=== PATIENT | female | born 1935 ===

== ENCOUNTER 2019-12-25 23:28 | Observation (INO) | payer MEDICARE, SELFPAY ==
[2019-12-25 23:32] VITALS: BP 167/75; PULSE 76; RESP 16; TEMP 37.3; O2SAT 92; BMI 24.7
--- NOTE | 2019-12-25 23:37 | XR_ITS ---
WS: [id number] CHEST XRAY TECHNIQUE: Portable chest. CLINICAL INFORMATION: Altered mental status COMPARISON: None. FINDINGS: Heart: Normal cardiac silhouette. Aortic calcification. Lungs: Moderate chronic emphysematous changes. No acute pulmonary infiltrates. Bones: Normal visualized bony structures. XR/XR chest 1V portable [id number] IMPRESSION: No acute chest findings
--- NOTE | 2019-12-25 23:38 | ECG_ITS ---
[facility] Test Date: 2019-12-26 Pat Name: Spring Billy Department: Room: Gender: Female Chemical Weigher: : 1935 Requested By: Tayler Shen Order Number: [id number] Thomas MD: kB Singh M.D. Measurements Intervals [place] Rate: 75 P: 72 MI: 193 QRS: 31 QRSD: 86 T: 134 QT: 403 QTc: 450 Interpretive Statements SINUS RHYTHM ST DEVIATION AND MODERATE T-WAVE ABNORMALITY, CONSIDER ANTEROLATERAL ISCHEMIA [-0.1+ mV T WAVE IN V3-V6] No previous ECG available for comparison Electronically Signed On 12-27-2019 0:06:20 CDT by Bk Singh M.D. [email or web address]/store/NU/[id number] f
--- NOTE | 2019-12-25 23:38 | CTR_ITS ---
PROCEDURE INFORMATION: Exam: CT Head Without Contrast Exam date and time: 12/25/2019 11:53 PM Age: 84 years old Clinical indication: Altered mental status/memory loss; Confusion or disorientation TECHNIQUE: Imaging protocol: Computed tomography of the head without contrast. Radiation optimization: All CT scans at this facility use at least one of these dose optimization techniques: automated exposure control; mA and/or kV adjustment per patient size (includes targeted exams where dose is matched to clinical indication); or iterative reconstruction. COMPARISON: No relevant prior studies available. RADIATION DOSE METRICS: Total DLP (mGy-cm): 982.15 FINDINGS: Brain: Subacute infarction changes are observed in the left MCA territory involving the posterior insula, and the left temporal, parietal and occipital lobes. Mild atrophy and mild white matter chronic microvascular changes are noted. No hemorrhage. Ventricles: Normal. No ventriculomegaly. Bones/joints: Unremarkable. No acute fracture. Sinuses: Visualized sinuses are unremarkable. No fluid levels. Mastoid air cells: Visualized mastoid air cells are well aerated. Soft tissues: Unremarkable. CT/CT head wo con* [id number] IMPRESSION: Large left MCA territory subacute infarction. Radiation Dose CTDIVOL = (mGy): DLP = 982.15 (mGy-cm)
--- NOTE | 2019-12-25 23:41 | ED_ITS ---
HPI - Altered Mental Status General: Chief Complaint: Neuro Symptoms/Deficit Stated Complaint: stroke Time Seen by Provider: 12/25/19 23:32 Source: EMS Mode of arrival: EMS Limitations: altered mental status History of Present Illness: HPI narrative: Mrs. Billy is an 84-year-old female who comes in via [facility] with report of stroke. Patient apparently on the seventh of this month developed facial droop, right-sided arm and leg weakness and had slurred speech. Her symptoms have not improved but actually gradually progressed. Family apparently took her finally to see the PCP on the and he diagnosed her with a stroke and informed him to go to the ER but she declined and was taken home. Tonight apparently she declined to the point she was unable to be cared for and family called EMS who brought the patient here. Here the patient is nonverbal and appears to have right-sided deficits. Family is not available, no phone number was left by EMS and there are no old charts for review. History is very limited. Review of Systems General: Reports: ROS unobtainable due to mental status Physical Exam Const: COMMON NORMALS: no acute distress, healthy appearing and well nourished GENERAL APPEARANCE: cooperative, well kempt and well developed HENMT: COMMON NORMALS: normocephalic, atraumatic, external ears normal, EAC's normal and Normal external nose present HEAD & SCALP: normal to inspection, normocephalic and atraumatic FACE & SINUS: normal facial exam and face symmetric NOSE: Normal external nose present and Normal nares present EXTERNAL EAR: Yes external ears normal EXTERNAL AUDITORY CANAL: EAC's normal MOUTH: Normal oral and palatal mucosa present, lip normal and tongue normal Eye: COMMON NORMALS: Equal, round and reactive pupils present and conjunctivae normal GENERAL EYE: appearance normal, both eyes and all related structures ALIGNMENT: Yes alignment normal PERIORBITAL: periorbital findings normal EYELID: eyelids normal CONJUNCTIVA: Yes conjunctivae normal SCLERA: sclerae normal PUPIL: Yes Equal, round and reactive pupils present Neck/C-Spine: COMMON NORMALS: full ROM, no lymphadenopathy, supple, no meningeal signs and no JVD GENERAL: Yes normal visual inspection and Yes trachea midline Chest: COMMONS NORMALS: normal inspection of the chest and normal palpation of entire chest wall Resp: COMMON NORMALS: normal respiratory effort, No retractions and No use of accessory muscles EFFORT & INSPECTION: Yes able to speak in complete sentences and Yes symmetric chest movement AUSCULTATION: no crackles, no rales, no rhonchi and no wheezes Cardio: COMMON NORMALS: no JVD, regular rate, regular rhythm, S1 normal heart sound present and S2 normal heart sound present RATE: regular rate RHYTHM: regular rhythm HEART SOUNDS: S1 normal heart sound present, S2 normal heart sound present, no click, no gallops, no murmurs, no rubs and abnormal split S2 GI: COMMON NORMALS: Soft to palpation and No hepatosplenomegaly present PALPATION: Yes Soft to palpation, No Tenderness to palpation present (GI), No Guarding due to palpation present (GI), No Rigid due to palpation, Yes No hepat osplenomegaly present, No Hernia present, No Palpable mass present and No Pulsatile mass present : COMMON NORMALS: Yes no CVA tenderness BLADDER/KIDNEY EXAM: Yes no CVA tenderness EXTERNAL FEMALE EXAM: No Hernia present Back/Pelvis: COMMON NORMALS: no CVA tenderness, thoracic and lumbar spine normal to inspection, no thoracic nor lumbar tenderness and thoraco-lumbar ROM normal Extremity: COMMON NORMALS: normal to inspection, full ROM, capillary refill normal, no joint enlargement, no clubbing, cyanosis or edema and no calf tenderness Neuro: JEEVAN COMA SCALE: document GCS findings [place] coma scale eye opening: Spontaneous [place] coma scale verbal response: None [place] coma scale motor response: Localising Jeevan coma scale total score: 10 MENINGEAL SIGNS: Yes no meningeal signs Psych: APPEARANCE: Yes well kempt Skin: COMMON NORMALS: no rashes or lesions noted, turgor normal, no jaundice, no petechiae and no mottling GENERAL SKIN EXAM: no rashes or lesions noted and turgor normal Course Vital Signs: Vital signs: Vital Signs Temperature 99.2 F 12/25/19 23:32 Pulse Rate 74 12/26/19 03:18 Respiratory Rate 16 12/26/19 03:18 Blood Pressure 161/69 12/26/19 03:18 Pulse Oximetry 92 12/26/19 03:18 MDM - Altered Mental Status MDM Narrative: Medical decision making narrative: The case at this time is very limited but the patient does appear to have had a very large stroke. I have endorsed the case to Dr. Del Castillo who is agreeable to admission. Lab Data: Attestation: I reviewed the patient's lab results. Labs: Lab Results 12/25/19 12/25/19 12/25/19 Range/Units 01:48 23:55 23:55 WBC 9.9 (4.0-10.0) 10^3/ uL RBC 4.59 (4.1-5.3) 10^6/u L Hgb 14.5 (11.5-15.3) g/dL Hct 43.2 (37.0-47.0) % MCV 94.1 (81-99) fL MCH 31.6 (28.0-34.0) pg MCHC 33.6 (30.0-36.0) g/dL RDW 11.7 L (12.1-15.1) % Plt Count 349 (130-400) 10^3/c mm MPV 10.7 H (7.4-10.4) fL Neut % (Auto) 72.1 % Lymph % (Auto) 17.4 % [place] % (Auto) 9.5 % Eos % (Auto) 0.6 % Baso % (Auto) 0.2 % Neut # (Auto) 7.10 (1.8-7.7) 10^3/u L Lymph # (Auto) 1.7 (0.8-4.8) 10^3/u L [place] # (Auto) 0.9 (0.2-0.9) 10^3/u L Eos # (Auto) 0.1 (0.0-0.8) 10^3/u L Baso # (Auto) 0.0 (0.0-0.1) 10^3/u L Nucleated RBC % (a uto) 0 % Nucleated RBCs # 0.0 /100WBC PT 13.80 H (10.5-13.3) SECO NDS INR 1.03 (0.8-1.2) Specimen Type Arterial Sample Site Brachial, right ABG pH 7.46 H (7.35-7.45) ABG pCO2 35.0 (35-45) mmHg ABG pO2 61.4 L (80.0-100.0) mmH g ABG HCO3 25.1 (22-26) mmol/L ABG Base Excess 1.7 (-2.0-2.0) mmol/ L Nick Test N/a Hematocrit 46.3 (37-47) % O2 Delivery Device Room air Milling Machine Operator ID [email or web address] Sodium (136-145) mmol/L Potassium (3.5-5.1) mmol/L Chloride (98-107) mmol/L Carbon Dioxide (22-29) mmol/L Anion Gap (5-19) BUN (8-23) mg/dL Creatinine (0.5-0.9) mg/dL Glucose (65-115) mg/dL Calculated Osmolal ity (285-295) mOsm/k g Lactic Acid (0.5-2.2) mmol/L Calcium (8.5-10.5) mg/dL Magnesium (1.7-2.3) mg/dL Total Bilirubin (0.15-1.2) mg/dL AST (0-32) U/L ALT (0-33) U/L Alkaline Phosphata se (35-105) IU/L Ammonia (11-51) umol/L Creatine Kinase (26-192) U/L Troponin T Baselin e (0-10) ng/L Troponin T 120 Min ambler (0-10) ng/L Delta Troponin T (0-10) ABS# Total Protein (6.6-8.7) g/dL Albumin (3.5-5.2) g/dL Globulin (1.3-4.6) g/dL Free T4 (0.82-1.77) ng/d L Ethyl Alcohol (0-10) mg/dL 12/25/19 12/25/19 12/25/19 Range/Units 23:55 23:55 23:55 WBC (4.0-10.0) 10^3/ uL RBC (4.1-5.3) 10^6/u L Hgb (11.5-15.3) g/dL Hct (37.0-47.0) % MCV (81-99) fL MCH (28.0-34.0) pg MCHC (30.0-36.0) g/dL RDW (12.1-15.1) % Plt Count (130-400) 10^3/c mm MPV (7.4-10.4) fL Neut % (Auto) % Lymph % (Auto) % [place] % (Auto) % Eos % (Auto) % Baso % (Auto) % Neut # (Auto) (1.8-7.7) 10^3/u L Lymph # (Auto) (0.8-4.8) 10^3/u L [place] # (Auto) (0.2-0.9) 10^3/u L Eos # (Auto) (0.0-0.8) 10^3/u L Baso # (Auto) (0.0-0.1) 10^3/u L Nucleated RBC % (a uto) % Nucleated RBCs # /100WBC PT (10.5-13.3) SECO NDS INR (0.8-1.2) Specimen Type Sample Site ABG pH (7.35-7.45) ABG pCO2 (35-45) mmHg ABG pO2 (80.0-100.0) mmH g ABG HCO3 (22-26) mmol/L ABG Base Excess (-2.0-2.0) mmol/ L Nick Test Hematocrit (37-47) % O2 Delivery Device Milling Machine Operator ID Sodium 138 (136-145) mmol/L Potassium 3.2 L (3.5-5.1) mmol/L Chloride 100 (98-107) mmol/L Carbon Dioxide 25 (22-29) mmol/L Anion Gap 16.2 (5-19) BUN 15 (8-23) mg/dL Creatinine 0.8 (0.5-0.9) mg/dL Glucose 153 H (65-115) mg/dL Calculated Osmolal ity 285 (285-295) mOsm/k g Lactic Acid 1.0 (0.5-2.2) mmol/L Calcium 9.8 (8.5-10.5) mg/dL Magnesium 1.9 (1.7-2.3) mg/dL Total Bilirubin 0.5 (0.15-1.2) mg/dL AST 25 (0-32) U/L ALT 19 (0-33) U/L Alkaline Phosphata se 79 (35-105) IU/L Ammonia 22 (11-51) umol/L Creatine Kinase 102 (26-192) U/L Troponin T Baselin e (0-10) ng/L Troponin T 120 Min ambler (0-10) ng/L Delta Troponin T (0-10) ABS# Total Protein 7.3 (6.6-8.7) g/dL Albumin 4.7 (3.5-5.2) g/dL Globulin 2.6 (1.3-4.6) g/dL Free T4 1.60 (0.82-1.77) ng/d L Ethyl Alcohol < 10 (0-10) mg/dL 12/25/19 12/26/19 12/26/19 Range/Units 23:55 01:18 01:18 WBC (4.0-10.0) 10^3/ uL RBC (4.1-5.3) 10^6/u L Hgb (11.5-15.3) g/dL Hct (37.0-47.0) % MCV (81-99) fL MCH (28.0-34.0) pg MCHC (30.0-36.0) g/dL RDW (12.1-15.1) % Plt Count (130-400) 10^3/c mm MPV (7.4-10.4) fL Neut % (Auto) % Lymph % (Auto) % [place] % (Auto) % Eos % (Auto) % Baso % (Auto) % Neut # (Auto) (1.8-7.7) 10^3/u L Lymph # (Auto) (0.8-4.8) 10^3/u L [place] # (Auto) (0.2-0.9) 10^3/u L Eos # (Auto) (0.0-0.8) 10^3/u L Baso # (Auto) (0.0-0.1) 10^3/u L Nucleated RBC % (a uto) % Nucleated RBCs # /100WBC PT (10.5-13.3) SECO NDS INR (0.8-1.2) Specimen Type Sample Site ABG pH (7.35-7.45) ABG pCO2 (35-45) mmHg ABG pO2 (80.0-100.0) mmH g ABG HCO3 (22-26) mmol/L ABG Base Excess (-2.0-2.0) mmol/ L Nick Test Hematocrit (37-47) % O2 Delivery Device Milling Machine Operator ID Sodium (136-145) mmol/L Potassium (3.5-5.1) mmol/L Chloride (98-107) mmol/L Carbon Dioxide (22-29) mmol/L Anion Gap (5-19) BUN (8-23) mg/dL Creatinine (0.5-0.9) mg/dL Glucose (65-115) mg/dL Calculated Osmolal ity (285-295) mOsm/k g Lactic Acid (0.5-2.2) mmol/L Calcium (8.5-10.5) mg/dL Magnesium 1.9 (1.7-2.3) mg/dL Total Bilirubin (0.15-1.2) mg/dL AST (0-32) U/L ALT (0-33) U/L Alkaline Phosphata se (35-105) IU/L Ammonia (11-51) umol/L Creatine Kinase (26-192) U/L Troponin T Baselin e 14 H (0-10) ng/L Troponin T 120 Min ambler 14.70 H (0-10) ng/L Delta Troponin T 0.70 (0-10) ABS# Total Protein (6.6-8.7) g/dL Albumin (3.5-5.2) g/dL Globulin (1.3-4.6) g/dL Free T4 (0.82-1.77) ng/d L Ethyl Alcohol (0-10) mg/dL Imaging Data^: CT Head: Radiologist's impression: [place] [address] CT Scan Report Signed Patient: Spring Billy Unit #: [id number] : 1935 Age/Sex: 84 / F ADM Date: 12/25/19 Loc: ER Room/Bed: Attending Dr: Ordering Provider/Ordering MD: Tayler Fox DO Date of Service: 12/25/19 Procedure(s): CT head wo con* [id number] Accession Number(s): [id number] Report Number: [id number] PROCEDURE INFORMATION: Exam: CT Head Without Contrast Exam date and time: 12/25/2019 11:53 PM Age: 84 years old Clinical indication: Altered mental status/memory loss; Confusion or disorientation TECHNIQUE: Imaging protocol: Computed tomography of the head without contrast. Radiation optimization: All CT scans at this facility use at least one of these dose optimization techniques: automated exposure control; mA and/or kV adjustment per patient size (includes targeted exams where dose is matched to clinical indication); or iterative reconstruction. COMPARISON: No relevant prior studies available. RADIATION DOSE METRICS: Total DLP (mGy-cm): 982.15 FINDINGS: Brain: Subacute infarction changes are observed in the left MCA territory involving the posterior insula, and the left temporal, parietal and occipital lobes. Mild atrophy and mild white matter chronic microvascular changes are noted. No hemorrhage. Ventricles: Normal. No ventriculomegaly. Bones/joints: Unremarkable. No acute fracture. Sinuses: Visualized sinuses are unremarkable. No fluid levels. Mastoid air cells: Visualized mastoid air cells are well aerated. Soft tissues: Unremarkable. CT/CT head wo con* [id number] IMPRESSION: Large left MCA territory subacute infarction. Radiation Dose CTDIVOL = (mGy): DLP = 982.15 (mGy-cm) Dictated By: Aaron Villavicencio MD Signed By: Aaron Villavicencio MD Signed Date/Time: 12/26/19216 DD/ 5 CXR: My impression: No acute cardiopulmonary findings. Discharge Plan Discharge Patient Disposition: Admitted As Inpatient Admit Provider: Jordan Cai Clinical Impression: Cerebrovascular accident Condition: Stable Coding Level of Care Code ED Ethylbenzene Converter Operator for Epifanio Monk
[2019-12-25 23:56] VITALS: BP 145/76; PULSE 76; RESP 16; O2SAT 94
[2019-12-26] VITALS (12 sets, daily range): BP systolic 126–184; BP diastolic 64–88; PULSE 71–102; RESP 15–22; TEMP 36.7–37.4; O2SAT 92–99
[2019-12-26 00:04] LABS: Basophils % 0.2 %; Eosinophils # 0.1 10^3/uL (0.0-0.8); Eosinophils % 0.6 %; Hematocrit 43.2 % (37.0-47.0); Hemoglobin 14.5 g/dL (11.5-15.3); Lymphocytes # 1.7 10^3/uL (0.8-4.8); Lymphocytes % 17.4 %; Mean Corpuscular HGB Conc 33.6 g/dL (30.0-36.0); Mean Corpuscular Hemoglobin 31.6 pg (28.0-34.0); Mean Corpuscular Volume 94.1 fL (81-99); Mean Platelet Volume 10.7 fL (7.4-10.4); Monocytes # 0.9 10^3/uL (0.2-0.9); Monocytes % 9.5 %; Neutrophils % 72.1 %; Nucleated Red Blood Cells % 0 %; Platelet Count 349 10^3/cmm (130-400); Red Blood Count 4.59 10^6/uL (4.1-5.3); Red Cell Distribution Width 11.7 % (12.1-15.1); White Blood Count 9.9 10^3/uL (4.0-10.0)
[2019-12-26 00:17] LABS: INR 1.03 (0.8-1.2)
[2019-12-26 00:23] LABS: Ammonia 22 umol/L (11-51); Troponin(5th) Baseline 14 ng/L (0-10)
[2019-12-26 00:32] LABS: Alanine Aminotransferase 19 U/L (0-33); Albumin Level 4.7 g/dL (3.5-5.2); Alkaline Phosphatase 79 IU/L (35-105); Anion Gap 16.2 (5-19); Aspartate Amino Transferase 25 U/L (0-32); Blood Urea Nitrogen 15 mg/dL (8-23); Calcium 9.8 mg/dL (8.5-10.5); Carbon Dioxide 25 mmol/L (22-29); Chloride 100 mmol/L (98-107); Creatine Phosphokinase 102 U/L (26-192); Creatinine Clr Calc Pharmacy 47.8117; Globulin 2.6 g/dL (1.3-4.6); Glucose 153 mg/dL (65-115); Magnesium 1.9 mg/dL (1.7-2.3); Osmolality Calculated 285 mOsm/kg (285-295); Potassium 3.2 mmol/L (3.5-5.1); Sodium 138 mmol/L (136-145); Total Bilirubin 0.5 mg/dL (0.15-1.2); Total Protein 7.3 g/dL (6.6-8.7)
[2019-12-26 00:34] LABS: Alcohol Level < 10 mg/dL (0-10)
--- NOTE | 2019-12-26 00:52 | PC.NURSE ---
attempted pandey catheter placement for patient per dr iraheta orders, unable to achieve catheter placement.
--- NOTE | 2019-12-26 01:38 | ECG_ITS ---
[facility] Test Date: 2019-12-26 Pat Name: Spring Billy Department: Room: Gender: Female Pot Filler: : 1935 Requested By: Tayler Shen Order Number: [id number] Thomas MD: Bk Singh M.D. Measurements Intervals [place] Rate: 75 P: 72 ND: 193 QRS: 31 QRSD: 86 T: 134 QT: 403 QTc: 450 Interpretive Statements SINUS RHYTHM ST DEVIATION AND MODERATE T-WAVE ABNORMALITY, CONSIDER ANTEROLATERAL ISCHEMIA [-0.1+ mV T WAVE IN V3-V6] No previous ECG available for comparison Electronically Signed On 12-27-2019 1:33:11 CDT by Bk Singh M.D. [id number] f
[2019-12-26 01:59] LABS: ABG PH Result 7.46 (7.35-7.45); Arterial Blood Gas Hematocrit 46.3 % (37-47); Base Excess ABG 1.7 mmol/L (-2.0-2.0); Blood Gas Sample Site Brachial, right; Blood Gas Sample Type Arterial; HCO3 ABG 25.1 mmol/L (22-26); Oxygen Device ROOM AIR; PO2 ABG 61.4 mmHg (80.0-100.0)
[2019-12-26] MEDS: lidocaine 1% INJ 20 mL 5 ML IV ×2 (03:17→13:23)
[2019-12-26] MEDS: sodium chloride 0.9% 1,000 ML 150 ML IV (03:17)
[2019-12-26 03:21] LABS: Magnesium 1.9 mg/dL (1.7-2.3)
[2019-12-26 03:52] LABS: Amphetamines Screen Urine Negative (Negative); Barbiturates Screen Urine Negative (Negative); Benzodiazepines Screen Urine Negative (Negative); Cocaine Screen Urine Negative (Negative); Opiate Screen Urine Negative (Negative); PCP Screen Urine Negative (Negative); THC Screen Urine Negative (Negative)
[2019-12-26 03:57] LABS: Bilirubin Urine Neg (NEGATIVE); Blood Urine 3+ (Negative); Glucose Urine UA Norm (Normal); Ketones Urine 1+ (Negative); Leukocyte Esterase Urine 2+ (Negative); Nitrate Urine Negative (Negative); Protein Urine 3+ (Negative); RBC Urine >100 /hpf (0-2); Urine Appearance Cloudy (CLEAR); Urine Color Yellow (Yellow); Urobilinogen Urine 1 mg/dL (Negative); pH Urine 5 (5-7)
[2019-12-26 03:58] LABS: Add Urine Culture? Yes; Amorphous Sediment Urine 1+; Bacteria Urine 1+; Squamous Epithelial Cell Urine 0-4 (0-5)
--- NOTE | 2019-12-26 04:04 | PM.HP ---
Providers/Chief Complaint Admitting Physician: Jordan Cai Chief Complaint: stroke History of Present Illness Spring Billy is a 84 year old female brought in by EMS, with reported history of elopement facial droop, right side arm and leg weakness, as well as slurred speech on 12/16, with report of progression of symptoms, reportedly was seen by PCP on 12/22 at which point was diagnosed with CVA. Tonight with noted worsening of symptoms whereby the family could not take care of her, and so EMS was called. Unfortunately during my examination she is completely a phasic, not following any commands. With right side weakness, right side facial droop. I do not have any additional flexion beyond what is reported in emergency documentation. Attempted to reach daughter on phone #[phone], Jing Conti, however, there is no answer. CT of the head in ER with large left MCA territory subacute infarction. Review of Systems General: Reports: ROS unobtainable due to medical condition and ROS unobtainable due to mental status Skin/Breast: Denies: rash Medications/Allergies Allergies Allergy/AdvReac Type Severity Reaction Status Date / Time No Known Allergies Allergy Verified 12/26/19 02:48 PFSH Acute Supplemental PFSH Information: Unknown past medical history at this time. Patient able to provide. Appears she has blood pressure medications, GERD medication, depression medication in external medication history. Unknown surgical history. Patient unable to provide. No family available. Unknown family history. Patient unable to provide. Unknown social history, as patient is unable to provide. Vitals/I&O/Wt Last Vital Signs Temp 99.2 F 12/25/19 23:32 Pulse 74 12/26/19 03:18 Resp 16 12/26/19 03:18 BP 161/69 12/26/19 03:18 Pulse Ox 92 12/26/19 03:18 Weight last 48 hrs Weight 63.503 kg Physical Exam Const: COMMON NORMALS: no acute distress; negative for patient oriented x3 GENERAL APPEARANCE: frail appearing; not cooperative ORIENTATION/CONSCIOUSNESS: Yes awake and Yes confused; not oriented to person HENMT: COMMON NORMALS: oropharynx normal Neck/C-Spine: COMMON NORMALS: no JVD Resp: COMMON NORMALS: normal respiratory effort and clear to auscultation bilaterally AUSCULTATION: clear to auscultation bilaterally Cardio: COMMON NORMALS: no JVD, regular rhythm, S1 normal heart sound present, S2 normal heart sound present and No murmurs present (Cardio) RHYTHM: regular rhythm HEART SOUNDS: S1 normal heart sound present and S2 normal heart sound present GI: COMMON NORMALS: Normal to inspection, nondistended, normoactive bowel sounds present, Soft to palpation and non-tender PALPATION: Yes Soft to palpation Extremity: COMMON NORMALS: no joint enlargement and no pedal edema Neuro: TIM COMA SCALE: other (Right-sided facial droop.) SENSORIUM/ORIENTATION: Yes alert and Yes other (Not following commands or answering questions. Not participating with exam.) MOTOR EXAM: Other motor observations present (Right side upper and lower weakness. Appears to be moving left side spontaneously.) Skin: COMMON NORMALS: no rashes or lesions noted GENERAL SKIN EXAM: no rashes or lesions noted Data : 12/25/19 23:55 12/25/19 23:55 A&P Assessment and plan (1) Cerebrovascular accident: The details at this time unfortunately are unknown. Patient is unable to provide any of her own history. Could not contact her daughter Jing Conti on number listed in H&P. History provider gives symptoms initially starting on 12/16, with right side facial droop, right-sided weakness, on 12/22 diagnosed by PCP with CVA. Symptoms reportedly have been progressing, and today family felt he could not take care of her, so EMS was called. With right side paralysis, right side facial droop. She is alert, but does not answer questions or follow commands. Large left MCA territory subacute stroke on CT of the head. She is not a candidate for any intervention at this time in terms of TPA or stent retriever. This time is admitted for additional assessment and management. Started on aspirin [facility]. At this time not clear that she would be able to swallow. ST evaluation. Once oral intake is resumed, consider adding statin. Monitor blood pressures. Monitor on telemetry. Assess TTE. A1c. PT and OT evaluation. Neurology evaluation after DC. Given family did not feel could take care of her, with extent of the stroke she likely will require placement to correction facility. Status: Acute Qualifiers: CVA mechanism: unspecified Qualified Code(s): I63.9 - Cerebral infarction, unspecified Additional A&P Information Mild hypokalemia: Replace. No other past medical history, but appears to have medications and external medical history for hypertension, GERD, depression/anxiety. Attestations Medical Necessity Statement*: Admission of over 2 midnights is continued for assessment management of CVA. Coding Level of Care Code Acute Grinder Set Up Operator Thread Tool for Epifanio Monk Diagnoses Cerebrovascular accident I63.9 CVA mechanism: unspecified
--- NOTE | 2019-12-26 04:41 | USCV_ITS ---
Spring Billy Age: 84 Gender: F : 1935 Exam Date: 12/26/2019 05:07 Ordering Phys: Jordan Cai MD Technologist: Amalia Higgins [place] [facility] [place]: [place] BP: / HR: 74 Rhythm: Sinus Technical Quality: Adequate MEASUREMENTS (Male / Female) Normal Values 2D ECHO LV Diastolic Diameter PLAX 3.2 cm 4.2 - 5.9 / 3.9 - 5.3 cm LV Systolic Diameter PLAX 2.6 cm LV Chamber Size 3.1 cm IVS Diastolic Thickness 0.9 cm 0.6 - 1.0 / 0.6 - 0.9 cm IVS Systolic Thickness 1.4 cm LVPW Diastolic Thickness 0.9 cm 0.6 - 1.0 / 0.6 - 0.9 cm LVPW Systolic Thickness 1.2 cm RV Chamber Size 2.0 cm LVOT Diameter 2.0 cm LV Ejection Fraction 2D Teich 41.2 % LV Ejection Fraction MOD 2C 32.2 % LV Ejection Fraction 2C AL 30.8 % LA Diameter 4.1 cm LA Width 2.1 cm LA Height 3.5 cm RA Width 2.1 cm RA Height 2.7 cm Aorta at Sinotubular Diameter 2.4 cm M-MODE LV Diastolic Diameter MM 3.4 cm 4.2 - 5.9 / 3.9 - 5.3 cm LV Systolic Diameter MM 2.3 cm LV Ejection Fraction MM Teich 59.7 % IVS Diastolic Thickness MM 1.1 cm 0.6 - 1.0 / 0.6 - 0.9 cm IVS Systolic Thickness MM 1.6 cm LVPW Diastolic Thickness MM 1.0 cm 0.6 - 1.0 / 0.6 - 0.9 cm LVPW Systolic Thickness MM 1.6 cm RV Diastolic Diameter MM 1.7 cm Aortic Annulus Diameter 3.2 cm LA Ao Ratio MM 1.3 MV E Point Septal Separation 0.4 cm DOPPLER AV Peak Velocity 152.0 cm/s LVOT Peak Velocity 96.0 cm/s AV Area Cont Eq vti 2.2 cm squared AV Area Cont Eq pk 2.0 cm squared MV Area PHT 3.1 cm squared Mitral E to A Ratio 0.8 MV E' Velocity 7.0 cm/s Mitral E to MV E' Ratio 10.8 Mitral E to LV E' Lateral Ratio 10.2 Mitral E to LV E' Septal Ratio 11.5 TR Peak Velocity 280.7 cm/s TR Peak Gradient 31.5 mmHg TR Mean Velocity 213.2 cm/s TR Mean Gradient 19.8 mmHg TR Velocity Time Integral 87.0 cm TV Peak E Velocity 73.0 cm/s Right Atrial Pressure 3.0 mmHg Pulmonary Artery Systolic Pressu 34.5 mmHg PV Peak Velocity 106.0 cm/s RV Acceleration Time 0.1 s RV Ejection Time 0.3 s RV AcT/ET 0.5 FINDINGS Left Ventricle Normal left ventricular size and systolic function, EF55%. Grade I/IV diastolic dysfunction (abnormal relaxation filling pattern), normal to mildly elevated filling pressures. Right Ventricle The right ventricle is normal in size and function. Right Atrium The right atrium is normal in size. Left Atrium Mildly increased left atrial size. 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 Aortic Valve Thickened aortic valve. Tricuspid Valve No gross abnormalities noted Pulmonic Valve Pulmonic valve not well visualized. Pericardium Normal pericardium without effusion. Aorta Normal ascending aorta dimension. CONCLUSIONS Normal left ventricular size and systolic function, EF55%. Grade I/IV diastolic dysfunction (abnormal relaxation filling pattern), normal to mildly elevated filling pressures. Mildly increased left atrial size. 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 Thickened mitral valve. Thickened aortic valve. There is no pericardial effusion. There are no intracardiac masses. There are no prior echocardiogram studies to compare. Dr Bk Singh MD FAC (Electronically Signed) Final Date: 26 December 2019 20:00 S
[2019-12-26] MEDS: aspirin 300 mg Supp PR (05:38)
[2019-12-26 07:03] LABS: Estmated Average Glucose 137; Hemoglobin A1C 6.4 % (4.0-6.0)
--- NOTE | 2019-12-26 07:30 | PC.NURSE ---
Patient laying in bed, close to nurse's station, patient visible from hallway and door is open. Patient is cooperative.
--- NOTE | 2019-12-26 12:16 | P.PN_ITS ---
Subjective Subjective: Interval history: Chart reviewed, hemodynamically stable, afebrile, on RA, remains aphasic with significant right-sided hemiparesis. Present for evaluation with physical therapy and that she requires significant assistance and attempt to ambulate with walker essentially needing to have her right side consistently supported. Daughter Jing updated at bedside during visiting hours. Family agreeable to SNF placement and prefers [facility]. Evaluated by speech therapy and will start on dysphagia pur?ed diet with honey thick liquids, will require consistent assistance with all meals. Medications: Reviewed: Yes Medication Review Details: Active Medications Generic Name Dose Route Start Last Admin Trade Name Freq PRN Reason Stop Dose Admin Aspirin 300 mg 12/26/19 04:45 12/26/19 05:38 Aspirin MN 300 mg DAILY EMILY Administration Sodium Chloride 1,000 mls @ 150 m ls/hr 12/26/19 03:15 12/26/19 04:36 Sodium Chloride 0.9% IV Not Given .Q6H40M EMILY Sodium Chloride 1,000 mls @ 100 m ls/hr 12/26/19 04:35 12/26/19 04:36 Sodium Chloride 0.9% IV Not Given .Q10H EMILY Ondansetron HCl 4 mg 12/26/19 04:35 Zofran IVP Q6H PRN NAUSEA AND VOMITI NG No Known Allergies Allergy (Verified 12/26/19 02:48) Vitals/I&O/Wt Last Vital Signs Temp 98.3 F 12/26/19 11:19 Pulse 78 12/26/19 11:19 Resp 22 H 12/26/19 11:19 BP 138/64 12/26/19 11:19 Pulse Ox 92 12/26/19 11:19 Weight last 48 hrs Weight 63.503 kg Physical Exam Const: COMMON NORMALS: no acute distress and alert GENERAL APPEARANCE: cooperative, comfortable and frail appearing ORIENTATION/CONSCIOUSNESS: Yes awake OTHER: -unable to gauge orientation due to aphasia HENMT: COMMON NORMALS: normocephalic, atraumatic, hearing grossly normal bilaterally and moist oral mucous membranes HEAD & SCALP: normocephalic and atraumatic Eye: COMMON NORMALS: Equal, round and reactive pupils present, EOMs intact bilaterally and conjunctivae normal CONJUNCTIVA: Yes conjunctivae normal PUPIL: Yes Equal, round and reactive pupils present Neck/C-Spine: COMMON NORMALS: full ROM GENERAL: Yes normal visual inspection and Yes trachea midline Resp: COMMON NORMALS: normal respiratory effort, No retractions, No use of accessory muscles and clear to auscultation bilaterally EFFORT & INSPECTION: Yes able to speak in complete sentences, Yes symmetric chest movement and No tachypneic AUSCULTATION: clear to auscultation bilaterally OTHER: -on RA Cardio: COMMON NORMALS: regular rate, regular rhythm, S1 normal heart sound present, S2 normal heart sound present and No murmurs present (Cardio) RATE: regular rate RHYTHM: regular rhythm HEART SOUNDS: S1 normal heart sound present and S2 normal heart sound present GI: COMMON NORMALS: Normal to inspection, nondistended, normoactive bowel sounds present, Soft to palpation and non-tender PALPATION: Yes Soft to palpation Extremity: COMMON NORMALS: normal to inspection, full ROM and no clubbing, cyanosis or edema; negative for no pedal edema Neuro: SENSORIUM/ORIENTATION: Yes alert SPEECH: Total aphasia GAIT: Yes Staggering gait present (leans heavily to the R) OTHER: -seems to have some degree of R sided carly-neglect Psych: COMMON NORMALS: cooperative OTHER: -limited evaluation due to aphasia Skin: COMMON NORMALS: no rashes or lesions noted, no jaundice, no petechiae and no mottling GENERAL SKIN EXAM: no rashes or lesions noted Data : 12/25/19 23:55 12/25/19 23:55 A&P Assessment and plan (1) Cerebrovascular accident: -noted aphasia, R facial droop, R-sided carly-paresis. -limited hx -large L MCA subacute infarction; per report, initially diagnosed with CVA by PCP -not a candidate for tPA or intervention given time of presentation -NPO pending swallow evaluation; on IVF -ASA [place] -PT/OT evaluations -fall, aspiration precautions -A1c, lipid panel, TSH noted -troponins with no significant delta change -telemetry monitoring -VSS; continue to monitor -UDS and EtOH negative -CXR unremarkable Status: Acute Qualifiers: CVA mechanism: unspecified Qualified Code(s): I63.9 - Cerebral infarction, unspecified Additional A&P Information -Advanced age -Hypokalemia: replace K as needed -HTN: per review of external med rec, was on Amlodipine, Lisinopril-HCTZ, metoprolol -GERD; was on omeprazole -Anxiety/depression; was on Paxil -GI ppx with PPI -DVT ppx with Lovenox -Dispo: needs SNF placement given extent of deficits and need for intensive therapy; family prefers [facility] -Code status: FULL code Attestations Medical Necessity Statement*: Patient requires hospitalization for continued post-CVA management including therapy evaluations. Time Spent in Patient Care: Greater than 35 minutes (>than 50% of time spent in counselling and/or direct pt care on unit) . Coding Level of Care Code Acute Air Brake Mechanic for [facility] Fwd Exam Comprehensive Diagnoses Cerebrovascular accident I63.9 CVA mechanism: unspecified
[2019-12-26] MEDS: pantoprazole 40 mg SDV IVP (13:23)
[2019-12-26] MEDS: potassium chloride premix 40 MEQ/100 ML PREMIX 25 MEQ IV (13:23)
[2019-12-26] MEDS: enoxaparin 40 mg/0.4 mL Syringe SUBCUT (13:24)
[2019-12-26] MEDS: sodium chloride 0.9% 1,000 ML 100 ML IV (14:44)
--- NOTE | 2019-12-26 17:41 | PC.NURSE ---
patient weighs 126lbs and 4oz via bed weight measurement.
[2019-12-27] VITALS (8 sets, daily range): BP systolic 117–192; BP diastolic 76–94; PULSE 90–108; RESP 16–18; TEMP 36.3–37.8; O2SAT 93–95
[2019-12-27 05:21] LABS: Basophils % 0.2 %; Eosinophils # 0.1 10^3/uL (0.0-0.8); Eosinophils % 0.6 %; Hematocrit 42.3 % (37.0-47.0); Hemoglobin 13.9 g/dL (11.5-15.3); Lymphocytes # 1.7 10^3/uL (0.8-4.8); Lymphocytes % 16.6 %; Mean Corpuscular HGB Conc 32.9 g/dL (30.0-36.0); Mean Corpuscular Hemoglobin 31.7 pg (28.0-34.0); Mean Corpuscular Volume 96.6 fL (81-99); Mean Platelet Volume 11.5 fL (7.4-10.4); Monocytes # 0.9 10^3/uL (0.2-0.9); Neutrophils # 7.28 10^3/uL (1.8-7.7); Neutrophils % 73.2 %; Nucleated Red Blood Cells % 0 %; Platelet Count 301 10^3/cmm (130-400); Red Blood Count 4.38 10^6/uL (4.1-5.3); Red Cell Distribution Width 11.9 % (12.1-15.1)
[2019-12-27 05:56] LABS: Alanine Aminotransferase 18 U/L (0-33); Albumin Level 4.2 g/dL (3.5-5.2); Alkaline Phosphatase 76 IU/L (35-105); Anion Gap 15.3 (5-19); Aspartate Amino Transferase 26 U/L (0-32); Blood Urea Nitrogen 11 mg/dL (8-23); Calcium 9.3 mg/dL (8.5-10.5); Carbon Dioxide 22 mmol/L (22-29); Chloride 107 mmol/L (98-107); Globulin 3.3 g/dL (1.3-4.6); Glucose 137 mg/dL (65-115); Osmolality Calculated 290 mOsm/kg (285-295); Potassium 3.3 mmol/L (3.5-5.1); Sodium 141 mmol/L (136-145); Total Bilirubin 0.6 mg/dL (0.15-1.2); Total Protein 7.5 g/dL (6.6-8.7)
[2019-12-27] MEDS: pantoprazole 40 mg SDV IVP (08:42)
[2019-12-27] MEDS: aspirin 300 mg Supp PR (08:59)
--- NOTE | 2019-12-27 10:08 | PC.CHAP ---
Pastoral Care Encounter/Spiritual Assessment Type of Contact [] Declined batter scaler visit [] Patient/Family/Request visit [] Outpatient visit [] Follow-up visit [] Physician referral [] Code/Alert [x] Routine visit [] Staff referral [] Actively dying [x] Patient sleeping [] Family support [] [] Out of room [] Palliative care [] [] Receiving care in room [] Pre-surgical visit [] Trauma [] Long length of stay [] ICU visit [] Other: Relational/Emotional Strength [] Patient feels connected with others/family/visitors/staff [] Distress [] Loneliness/isolation [] Abandonment Spirituality of Patient [] Person of [place]ie [] Attends Taoist of their Jenn[place] [] Believes in Prayer [] Reads Bible or Roman Catholic materials [] There are Spiritual issues to be addressed Garland Maker Interventions [x] Prayer [] Active listening [] Non-anxious presence [] Spiritual/emotional support [] Crisis/trauma care [] Spiritual counseling [] Bereavement support [] Provided bereavement packet [] Provided Bible/devotional materials [] Provided toy/stuffed animal, coloring book to patient or family member [] Provided Communion [] Anointing/[place] [] Salvation [] Completed spiritual assessment [] Other: Impact on Illness or Injury [] Angry [] Fearful [] Anxious [] Often cries [] Exhaustion [] Unable to work [] Unable to attend jain [] Unable to walk/stand [] Unable to read [] Unable to drive [] Unable to eat/drink [] Unable to sleep [] Unable to be with family [] Patient intubated [] Other: Summary Time spent with patient
--- NOTE | 2019-12-27 10:32 | PM.PN ---
Subjective Subjective: Interval history: Remains aphasic, R sided weakness persists. VSS though low grade temp this AM of 100.1 F around midnight, mild tachycardia. Seems to be trying to make more sounds in an attempt to speak today. Medications: Reviewed: Yes Medication Review Details: Active Medications Generic Name Dose Route Start Last Admin Trade Name Freq PRN Reason Stop Dose Admin Aspirin 300 mg 12/26/19 04:45 12/27/19 08:59 Aspirin [place] 300 mg DAILY EMILY Administration Enoxaparin Sodium 40 mg 12/26/19 13:00 12/26/19 13:24 Lovenox SUBCUT 40 mg Q24H EMILY Administration Ondansetron HCl 4 mg 12/26/19 04:35 Zofran IVP Q6H PRN NAUSEA AND VOMITI NG Pantoprazole Sodiu m 40 mg 12/26/19 12:25 12/27/19 08:42 Protonix IVP 40 mg DAILY EMILY Administration No Known Allergies Allergy (Verified 12/26/19 02:48) Vitals/I&O/Wt Last Vital Signs Temp 99.5 F 12/27/19 07:53 Pulse 108 H 12/27/19 07:53 Resp 16 12/27/19 07:53 BP 117/77 12/27/19 07:53 Pulse Ox 93 12/27/19 07:53 12/26/19 12/27/19 12/27/19 22:59 06:59 14:59 Intake Total 240 / 1240 Balance 240 / 1240 Weight last 48 hrs Weight 56.047 kg Weight 63.503 kg Physical Exam Const: COMMON NORMALS: no acute distress and alert GENERAL APPEARANCE: cooperative, comfortable and frail appearing ORIENTATION/CONSCIOUSNESS: Yes awake OTHER: -unable to gauge orientation due to aphasia HENMT: COMMON NORMALS: normocephalic, atraumatic, hearing grossly normal bilaterally and moist oral mucous membranes HEAD & SCALP: normocephalic and atraumatic Eye: COMMON NORMALS: Equal, round and reactive pupils present, EOMs intact bilaterally and conjunctivae normal CONJUNCTIVA: Yes conjunctivae normal PUPIL: Yes Equal, round and reactive pupils present Neck/C-Spine: COMMON NORMALS: full ROM GENERAL: Yes normal visual inspection and Yes trachea midline Resp: COMMON NORMALS: normal respiratory effort, No retractions, No use of accessory muscles and clear to auscultation bilaterally EFFORT & INSPECTION: Yes able to speak in complete sentences, Yes symmetric chest movement and No tachypneic AUSCULTATION: clear to auscultation bilaterally OTHER: -on RA Cardio: COMMON NORMALS: regular rate, regular rhythm, S1 normal heart sound present, S2 normal heart sound present and No murmurs present (Cardio) RATE: regular rate RHYTHM: regular rhythm HEART SOUNDS: S1 normal heart sound present and S2 normal heart sound present GI: COMMON NORMALS: Normal to inspection, nondistended, normoactive bowel sounds present, Soft to palpation and non-tender PALPATION: Yes Soft to palpation Extremity: COMMON NORMALS: normal to inspection, full ROM and no clubbing, cyanosis or edema; negative for no pedal edema Neuro: COMMON NORMALS: moves all extremities, no focal motor deficits, no sensory deficits noted and gait normal SENSORIUM/ORIENTATION: Yes alert SPEECH: Total aphasia GAIT: Yes Staggering gait present (leans heavily to the R) OTHER: -seems to have some degree of R sided carly-neglect Psych: COMMON NORMALS: cooperative OTHER: -limited evaluation due to aphasia Skin: COMMON NORMALS: no rashes or lesions noted, no jaundice, no petechiae and no mottling GENERAL SKIN EXAM: no rashes or lesions noted Data : 12/27/19 04:10 12/27/19 04:10 Micro: Microbiology 12/26/19 03:26 Urine Culture - Preliminary Urine,Clean Catch A&P Assessment and plan (1) Cerebrovascular accident: -noted aphasia, R facial droop, R-sided carly-paresis. -limited hx -large L MCA subacute infarction; per report, initially diagnosed with CVA by PCP -not a candidate for tPA or intervention given time of presentation -on dysphagia pur?ed diet with honey thick liquids per ST evaluation; off IVF -ASA [place] -PT/OT evaluations appreciated -fall, aspiration precautions -A1c, lipid panel, TSH noted -troponins with no significant delta change -telemetry monitoring -VSS; continue to monitor -UDS and EtOH negative -CXR unremarkable Status: Acute Qualifiers: CVA mechanism: unspecified Qualified Code(s): I63.9 - Cerebral infarction, unspecified Additional A&P Information -Advanced age -Hypokalemia: replace K as needed -HTN: per review of external med rec, was on Amlodipine, Lisinopril-HCTZ, metoprolol -GERD; was on omeprazole -Anxiety/depression; was on Paxil -GI ppx with PPI -DVT ppx with Lovenox -Dispo: needs SNF placement given extent of deficits and need for intensive therapy; family prefers [facility]. COVID-19 testing requested due to need for placement, moved to private room due to need for isolation precautions -Code status: FULL code Attestations Medical Necessity Statement*: Patient requires hospitalization for continued post CVA care including therapy evaluations, pending appropriate disposition. Time Spent in Patient Care: 16 - 35 minutes (>than 50% of time spent in counselling and/or direct pt care on unit). Coding Level of Care Code Acute Named Account Executive for g Fwd Exam Comprehensive Diagnoses Cerebrovascular accident I63.9 CVA mechanism: unspecified
--- NOTE | 2019-12-27 10:59 | PC.NURSE ---
patient up with PT
[2019-12-27] MEDS: potassium chloride oral liq 20 mEq/15 mL UDC 40 MEQ PO (11:12)
[2019-12-27 12:03] LABS: Glucose Point of Care 151 mg/dL (70-110)
[2019-12-27] MEDS: enoxaparin 40 mg/0.4 mL Syringe SUBCUT (12:54)
[2019-12-27] MEDS: metoprolol tartrate 25 mg Tablet PO (22:16)
[2019-12-28] VITALS (7 sets, daily range): BP systolic 150–191; BP diastolic 76–98; PULSE 81–96; RESP 17–20; TEMP 36.6–37.2; O2SAT 91–94
[2019-12-28 07:05] LABS: Basophils % 0.3 %; Eosinophils # 0.1 10^3/uL (0.0-0.8); Hematocrit 44.9 % (37.0-47.0); Hemoglobin 14.2 g/dL (11.5-15.3); Lymphocytes # 1.6 10^3/uL (0.8-4.8); Lymphocytes % 14.3 %; Mean Corpuscular HGB Conc 31.6 g/dL (30.0-36.0); Mean Corpuscular Hemoglobin 31.8 pg (28.0-34.0); Mean Corpuscular Volume 100.4 fL (81-99); Mean Platelet Volume 11.9 fL (7.4-10.4); Monocytes # 0.9 10^3/uL (0.2-0.9); Monocytes % 7.6 %; Neutrophils # 8.61 10^3/uL (1.8-7.7); Neutrophils % 76.5 %; Nucleated Red Blood Cells % 0 %; Platelet Count 318 10^3/cmm (130-400); Red Blood Count 4.47 10^6/uL (4.1-5.3); Red Cell Distribution Width 11.9 % (12.1-15.1); White Blood Count 11.3 10^3/uL (4.0-10.0)
[2019-12-28 07:26] LABS: Alanine Aminotransferase 19 U/L (0-33); Albumin Level 4.1 g/dL (3.5-5.2); Alkaline Phosphatase 87 IU/L (35-105); Aspartate Amino Transferase 26 U/L (0-32); Blood Urea Nitrogen 12 mg/dL (8-23); Calcium 8.9 mg/dL (8.5-10.5); Carbon Dioxide 23 mmol/L (22-29); Chloride 108 mmol/L (98-107); Globulin 3.6 g/dL (1.3-4.6); Glucose 138 mg/dL (65-115); Osmolality Calculated 296 mOsm/kg (285-295); Sodium 144 mmol/L (136-145); Total Bilirubin 0.6 mg/dL (0.15-1.2); Total Protein 7.7 g/dL (6.6-8.7)
[2019-12-28] MEDS: metoprolol tartrate 25 mg Tablet PO ×2 (10:03→18:26)
[2019-12-28] MEDS: pantoprazole 40 mg SDV IVP (10:03)
[2019-12-28] MEDS: aspirin 300 mg Supp PR (10:04)
[2019-12-28 10:21] LABS: Anion Gap 16.7 (5-19); Potassium 3.7 mmol/L (3.5-5.1)
--- NOTE | 2019-12-28 14:15 | PM.PN ---
Subjective Subjective: Interval history: On isolation precautions pending COVID-19 test results. Remains aphasic, on RA. Resting in bed, seems fatigued, and though minimal verbal response, tries to system developer associate manager my fingers on the R and resists me when trying to open her eyes. Seems to want to be left alone to rest. Per nursing staff, had an otherwise unremarkable day. Medications: Reviewed: Yes Medication Review Details: Active Medications Generic Name Dose Route Start Last Admin Trade Name Freq PRN Reason Stop Dose Admin Amlodipine Besylat e 5 mg 12/29/19 09:00 Norvasc PO DAILY [facility] Aspirin 325 mg 12/29/19 09:00 Aspirin PO DAILY [facility] Enoxaparin Sodium 40 mg 12/26/19 13:00 12/27/19 12:54 Lovenox SUBCUT 40 mg Q24H EMILY Administration Lisinopril 10 mg 12/29/19 09:00 Prinivil PO DAILY [facility] Metoprolol Tartrat e 25 mg 12/27/19 20:25 12/28/19 10:03 Lopressor PO 25 mg BID EMILY Administration Ondansetron HCl 4 mg 12/26/19 04:35 Zofran IVP Q6H PRN NAUSEA AND VOMITI NG Pantoprazole Sodiu m 40 mg 12/26/19 12:25 12/28/19 10:03 Protonix IVP 40 mg DAILY EMILY Administration No Known Allergies Allergy (Verified 12/26/19 02:48) Vitals/I&O/Wt Last Vital Signs Temp 98.1 F 12/28/19 12:00 Pulse 88 12/28/19 12:00 Resp 17 12/28/19 12:00 BP 176/92 12/28/19 12:00 Pulse Ox 93 12/28/19 12:00 12/27/19 12/28/19 12/28/19 22:59 06:59 14:59 Intake Total 120 / 360 Balance 120 / 360 Weight last 48 hrs Weight 55.111 kg Weight 56.047 kg Physical Exam Const: COMMON NORMALS: no acute distress and alert GENERAL APPEARANCE: cooperative, comfortable and frail appearing ORIENTATION/CONSCIOUSNESS: Yes awake OTHER: -unable to gauge orientation due to aphasia -seems more fatigued today HENMT: COMMON NORMALS: normocephalic, atraumatic, hearing grossly normal bilaterally and moist oral mucous membranes HEAD & SCALP: normocephalic and atraumatic Eye: COMMON NORMALS: Equal, round and reactive pupils present, EOMs intact bilaterally and conjunctivae normal CONJUNCTIVA: Yes conjunctivae normal PUPIL: Yes Equal, round and reactive pupils present Neck/C-Spine: COMMON NORMALS: full ROM GENERAL: Yes normal visual inspection and Yes trachea midline Resp: COMMON NORMALS: normal respiratory effort, No retractions, No use of accessory muscles and clear to auscultation bilaterally EFFORT & INSPECTION: Yes able to speak in complete sentences, Yes symmetric chest movement and No tachypneic AUSCULTATION: clear to auscultation bilaterally OTHER: -on RA Cardio: COMMON NORMALS: regular rate, regular rhythm, S1 normal heart sound present, S2 normal heart sound present and No murmurs present (Cardio) RATE: regular rate RHYTHM: regular rhythm HEART SOUNDS: S1 normal heart sound present and S2 normal heart sound present GI: COMMON NORMALS: Normal to inspection, nondistended, normoactive bowel sounds present, Soft to palpation and non-tender PALPATION: Yes Soft to palpation Extremity: COMMON NORMALS: normal to inspection, full ROM and no clubbing, cyanosis or edema; negative for no pedal edema Neuro: COMMON NORMALS: moves all extremities, no focal motor deficits, no sensory deficits noted and gait normal SENSORIUM/ORIENTATION: Yes alert SPEECH: Total aphasia GAIT: Yes Staggering gait present (leans heavily to the R) OTHER: -seems to have some degree of R sided carly-neglect Psych: COMMON NORMALS: cooperative OTHER: -limited evaluation due to aphasia Skin: COMMON NORMALS: no rashes or lesions noted, no jaundice, no petechiae and no mottling GENERAL SKIN EXAM: no rashes or lesions noted Data : 12/28/19 06:15 12/28/19 06:15 Micro: Microbiology 12/26/19 03:26 Urine Culture - Final Urine,Clean Catch A&P Assessment and plan (1) Cerebrovascular accident: -noted aphasia, R facial droop, R-sided carly-paresis. 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 Need to confirm this -GERD; was on omeprazole -Anxiety/depression; was on Paxil -GI ppx with PPI -DVT ppx with Lovenox -Dispo: needs SNF placement given extent of deficits and need for intensive therapy; family prefers [facility]. COVID-19 testing requested due to need for placement, moved to private room due to need for isolation precautions -Code status: FULL code Attestations Medical Necessity Statement*: Patient requires hospitalization for continued post-CVA care pending appropriate disposition. Time Spent in Patient Care: 16 - 35 minutes (>than 50% of time spent in counselling and/or direct pt care on unit). Coding Level of Care Code Acute Cyber Security Administrator for g Fwd Exam Comprehensive Diagnoses Cerebrovascular accident I63.9 CVA mechanism: unspecified
[2019-12-28] MEDS: enoxaparin 40 mg/0.4 mL Syringe SUBCUT (18:26)
--- NOTE | 2019-12-28 19:33 | PC.NURSE ---
AT APPROX 1815 AUTOMOTIVE MANAGER WENT TO GIVE EVENING MEDS AND PT SEEMED LETHARGIC THAN NORMAL. DR KUMARI NOTIFIED AND CAME TO SEE PT.
[2019-12-28] MEDS: atorvastatin 40 mg Tablet PO (21:50)
[2019-12-28 21:57] LABS: Coronavirus Lab Test PTC SEE COMMENTS
[2019-12-28 22:00] LABS: Glucose Point of Care 117 mg/dL (70-110)
[2019-12-29 04:00] VITALS: BP 178/98; PULSE 101; RESP 20; TEMP 36.7; O2SAT 95
[2019-12-29 06:03] LABS: Basophils % 0.3 %; Eosinophils # 0.1 10^3/uL (0.0-0.8); Eosinophils % 0.4 %; Hematocrit 48.4 % (37.0-47.0); Hemoglobin 15.3 g/dL (11.5-15.3); Lymphocytes # 1.6 10^3/uL (0.8-4.8); Lymphocytes % 13.9 %; Mean Corpuscular HGB Conc 31.6 g/dL (30.0-36.0); Mean Corpuscular Hemoglobin 31.9 pg (28.0-34.0); Mean Platelet Volume 11.5 fL (7.4-10.4); Monocytes # 0.8 10^3/uL (0.2-0.9); Monocytes % 7.2 %; Neutrophils # 8.94 10^3/uL (1.8-7.7); Neutrophils % 77.9 %; Nucleated Red Blood Cells % 0 %; Platelet Count 339 10^3/cmm (130-400); Red Blood Count 4.79 10^6/uL (4.1-5.3); Red Cell Distribution Width 11.9 % (12.1-15.1); White Blood Count 11.5 10^3/uL (4.0-10.0)
[2019-12-29 07:38] VITALS: BP 177/105; PULSE 105; RESP 20; TEMP 37.1; O2SAT 96
--- NOTE | 2019-12-29 09:24 | P.PN_ITS ---
Subjective Subjective: Interval history: Hypertensive, kept NPO overnight, seems more awake and alert this AM. Afebrile, on RA. COVID-19 negative, off isolation precautions. Seems to be doing a little better today, worked better with therapy, will resume dysphagia diet with honey-thick liquids and feeding assistance. Able to vocalize thank you, though seems quite discouraged and depressed. Medications: Reviewed: Yes Medication Review Details: Active Medications Generic Name Dose Route Start Last Admin Trade Name Freq PRN Reason Stop Dose Admin Amlodipine Besylat e 10 mg 12/30/19 09:00 Norvasc PO DAILY [facility] Aspirin 325 mg 12/29/19 09:00 Aspirin PO DAILY [facility] Atorvastatin Calci um 40 mg 12/28/19 21:00 12/28/19 21:50 Lipitor PO 40 mg BEDTIME EMILY Administration Enoxaparin Sodium 40 mg 12/26/19 13:00 12/28/19 18:26 Lovenox SUBCUT 40 mg Q24H EMILY Administration Lisinopril 10 mg 12/29/19 09:00 Prinivil PO DAILY [facility] Metoprolol Tartrat e 25 mg 12/27/19 20:25 12/28/19 19:36 Lopressor PO Not Given BID [facility] Ondansetron HCl 4 mg 12/26/19 04:35 Zofran IVP Q6H PRN NAUSEA AND VOMITI NG Pantoprazole Sodiu m 40 mg 12/26/19 12:25 12/28/19 10:03 Protonix IVP 40 mg DAILY EMILY Administration No Known Allergies Allergy (Verified 12/26/19 02:48) Vitals/I&O/Wt Last Vital Signs Temp 98.7 F 12/29/19 07:38 Pulse 105 H 12/29/19 07:38 Resp 20 H 12/29/19 07:38 BP 177/105 12/29/19 07:38 Pulse Ox 96 12/29/19 07:38 Weight last 48 hrs Weight 57.323 kg Weight 55.111 kg Physical Exam Const: COMMON NORMALS: no acute distress and alert GENERAL APPEARANCE: cooperative, comfortable and frail appearing ORIENTATION/CONSCIOUSNESS: Yes awake OTHER: -unable to gauge orientation due to aphasia HENMT: COMMON NORMALS: normocephalic, atraumatic, hearing grossly normal bilaterally and moist oral mucous membranes HEAD & SCALP: normocephalic and atraumatic OTHER: -R facial droop Eye: COMMON NORMALS: Equal, round and reactive pupils present, EOMs intact bilaterally and conjunctivae normal CONJUNCTIVA: Yes conjunctivae normal PUPIL: Yes Equal, round and reactive pupils present Neck/C-Spine: COMMON NORMALS: full ROM GENERAL: Yes normal visual inspection and Yes trachea midline Resp: COMMON NORMALS: normal respiratory effort, No retractions, No use of accessory muscles and clear to auscultation bilaterally EFFORT & INSPECTION: Yes able to speak in complete sentences, Yes symmetric chest movement and No tachypneic AUSCULTATION: clear to auscultation bilaterally OTHER: -on RA Cardio: COMMON NORMALS: regular rate, regular rhythm, S1 normal heart sound present, S2 normal heart sound present and No murmurs present (Cardio) RATE: regular rate RHYTHM: regular rhythm HEART SOUNDS: S1 normal heart sound present and S2 normal heart sound present GI: COMMON NORMALS: Normal to inspection, nondistended, normoactive bowel sounds present, Soft to palpation and non-tender PALPATION: Yes Soft to palpation Extremity: COMMON NORMALS: normal to inspection, full ROM and no clubbing, cyanosis or edema; negative for no pedal edema Neuro: SENSORIUM/ORIENTATION: Yes alert SPEECH: Total aphasia GAIT: Yes Staggering gait present (leans heavily to the R) OTHER: -seems to have some degree of R sided carly-neglect -R sided hemiparesis, worse in upper extremity Psych: COMMON NORMALS: cooperative OTHER: -limited evaluation due to aphasia Skin: COMMON NORMALS: no rashes or lesions noted, no jaundice, no petechiae and no mottling GENERAL SKIN EXAM: no rashes or lesions noted Data : 12/29/19 05:38 12/28/19 06:15 Micro: Microbiology 12/26/19 03:26 Urine Culture - Final Urine,Clean Catch A&P Assessment and plan (1) Cerebrovascular accident: -noted aphasia, R facial droop, R-sided carly-paresis. 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 Need to confirm this -GERD; was on omeprazole -Anxiety/depression; was on Paxil -GI ppx with PPI -DVT ppx with Lovenox -Dispo: needs SNF placement given extent of deficits and need for intensive therapy; family prefers [facility]. COVID-19 testing requested due to need for placement, moved to private room due to need for isolation precautions -Code status: FULL code Attestations Medical Necessity Statement*: Patient requires hospitalization for continued post-CVA care pending appropriate disposition. Time Spent in Patient Care: 16 - 35 minutes (>than 50% of time spent in counselling and/or direct pt care on unit) . Coding Level of Care Code Acute Local Flatbed Driver for Chg Fwd Exam Comprehensive Diagnoses Cerebrovascular accident I63.9 CVA mechanism: unspecified
[2019-12-29] MEDS: metoprolol tartrate 25 mg Tablet PO ×2 (09:25→17:59)
[2019-12-29] MEDS: aspirin 325 mg Tablet PO (09:25)
[2019-12-29] MEDS: amlodipine 5 mg Tablet PO (09:26)
[2019-12-29] MEDS: lisinopril 10 mg Tablet PO (09:26)
[2019-12-29 12:00] VITALS: BP 180/80; PULSE 69; RESP 18; TEMP 36.4; O2SAT 91
[2019-12-29] MEDS: pantoprazole 40 mg SDV IVP (14:35)
[2019-12-29 15:41] VITALS: BP 166/91; PULSE 92; RESP 18; TEMP 36.9; O2SAT 95
[2019-12-29] MEDS: enoxaparin 40 mg/0.4 mL Syringe SUBCUT (17:59)
[2019-12-29 20:00] VITALS: BP 154/90; PULSE 88; RESP 16; TEMP 35.9; O2SAT 96
[2019-12-29] MEDS: atorvastatin 40 mg Tablet PO (21:00)
[2019-12-30] VITALS: BP 164/93; PULSE 71; RESP 16; TEMP 36.5; O2SAT 95
[2019-12-30 04:00] VITALS: BP 174/97; PULSE 86; RESP 16; TEMP 36.1; O2SAT 97
[2019-12-30 07:38] VITALS: BP 171/89; PULSE 76; RESP 17; TEMP 36.4; O2SAT 93
[2019-12-30] MEDS: pantoprazole 40 mg SDV IVP (08:59)
[2019-12-30] MEDS: lisinopril 10 mg Tablet PO (08:59)
[2019-12-30] MEDS: aspirin 325 mg Tablet PO (08:59)
[2019-12-30] MEDS: amlodipine 10 mg Tablet PO (08:59)
[2019-12-30] MEDS: metoprolol tartrate 25 mg Tablet PO (08:59)
[2019-12-30] MEDS: PARoxetine 20 mg Tablet 40 MG PO (08:59)
[2019-12-30 11:33] VITALS: BP 148/83; PULSE 91; RESP 17; TEMP 36.1; O2SAT 94
--- NOTE | 2019-12-30 11:44 | PM.PN ---
Subjective Subjective: Interval history: Able to respond yes ma'am when I walked in to the room, no apparent distress, no acute overnight events reported. Has been approved for transfer to [facility]. Medications: Reviewed: Yes Medication Review Details: Active Medications Generic Name Dose Route Start Last Admin Trade Name Humphreyq PRN Reason Stop Dose Admin Amlodipine Besylat e 10 mg 12/30/19 09:00 12/30/19 08:59 Norvasc PO 10 mg DAILY EMILY Administration Aspirin 325 mg 12/29/19 09:00 12/30/19 08:59 Aspirin PO 325 mg DAILY EMILY Administration Atorvastatin Calci um 40 mg 12/28/19 21:00 12/29/19 21:00 Lipitor PO 40 mg BEDTIME EMILY Administration Enoxaparin Sodium 40 mg 12/26/19 13:00 12/29/19 17:59 Lovenox SUBCUT 40 mg Q24H EMILY Administration Lisinopril 10 mg 12/29/19 09:00 12/30/19 08:59 Prinivil PO 10 mg DAILY EMILY Administration Metoprolol Tartrat e 25 mg 12/27/19 20:25 12/30/19 08:59 Lopressor PO 25 mg BID EMILY Administration Ondansetron HCl 4 mg 12/26/19 04:35 Zofran IVP Q6H PRN NAUSEA AND VOMITI NG Pantoprazole Sodiu m 40 mg 12/26/19 12:25 12/30/19 08:59 Protonix IVP 40 mg DAILY EMILY Administration Paroxetine HCl 40 mg 12/30/19 09:00 12/30/19 08:59 Paxil PO 40 mg DAILY EMILY Administration No Known Allergies Allergy (Verified 12/26/19 02:48) Vitals/I&O/Wt Last Vital Signs Temp 96.9 F L 12/30/19 11:33 Pulse 91 12/30/19 11:33 Resp 17 12/30/19 11:33 BP 148/83 12/30/19 11:33 Pulse Ox 94 12/30/19 11:33 Weight last 48 hrs Weight 56.336 kg Weight 57.323 kg Physical Exam Const: COMMON NORMALS: no acute distress and alert GENERAL APPEARANCE: cooperative, comfortable and frail appearing ORIENTATION/CONSCIOUSNESS: Yes awake OTHER: -unable to gauge orientation due to aphasia HENMT: COMMON NORMALS: normocephalic, atraumatic, hearing grossly normal bilaterally and moist oral mucous membranes HEAD & SCALP: normocephalic and atraumatic OTHER: -R facial droop Eye: COMMON NORMALS: Equal, round and reactive pupils present, EOMs intact bilaterally and conjunctivae normal CONJUNCTIVA: Yes conjunctivae normal PUPIL: Yes Equal, round and reactive pupils present Neck/C-Spine: COMMON NORMALS: full ROM GENERAL: Yes normal visual inspection and Yes trachea midline Resp: COMMON NORMALS: normal respiratory effort, No retractions, No use of accessory muscles and clear to auscultation bilaterally EFFORT & INSPECTION: Yes able to speak in complete sentences, Yes symmetric chest movement and No tachypneic AUSCULTATION: clear to auscultation bilaterally OTHER: -on RA Cardio: COMMON NORMALS: regular rate, regular rhythm, S1 normal heart sound present, S2 normal heart sound present and No murmurs present (Cardio) RATE: regular rate RHYTHM: regular rhythm HEART SOUNDS: S1 normal heart sound present and S2 normal heart sound present GI: COMMON NORMALS: Normal to inspection, nondistended, normoactive bowel sounds present, Soft to palpation and non-tender PALPATION: Yes Soft to palpation Extremity: COMMON NORMALS: normal to inspection, full ROM and no clubbing, cyanosis or edema; negative for no pedal edema Neuro: COMMON NORMALS: moves all extremities, no focal motor deficits, no sensory deficits noted and gait normal SENSORIUM/ORIENTATION: Yes alert SPEECH: Total aphasia GAIT: Yes Staggering gait present (leans heavily to the R) OTHER: -seems to have some degree of R sided carly-neglect -R sided hemiparesis, worse in upper extremity Psych: COMMON NORMALS: cooperative OTHER: -limited evaluation due to aphasia Skin: COMMON NORMALS: no rashes or lesions noted, no jaundice, no petechiae and no mottling GENERAL SKIN EXAM: no rashes or lesions noted Data : 12/29/19 05:38 12/28/19 06:15 A&P Assessment and plan (1) Cerebrovascular accident: -noted aphasia, R facial droop, R-sided carly-paresis. 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 Need to confirm this -GERD; was on omeprazole -Anxiety/depression; was on Paxil -GI ppx with PPI -DVT ppx with Lovenox -Dispo: needs SNF placement given extent of deficits and need for intensive therapy; family prefers [facility]. COVID-19 testing requested due to need for placement, negative, off isolation precautions -Code status: FULL code Attestations Medical Necessity Statement*: Discharge to [facility] this afternoon Time Spent in Patient Care: 16 - 35 minutes (>than 50% of time spent in counselling and/or direct pt care on unit). Coding Level of Care Code Acute Scarf Gluer for Sushmag Fwd Exam Comprehensive Diagnoses Cerebrovascular accident I63.9 CVA mechanism: unspecified
--- NOTE | 2019-12-30 15:44 | PM.DCS ---
Discharge Providers Date of Admission: 12/26/19 03:04 Date of Discharge: December 30, 2019 Attending Provider at Admission: Jordan Cai Attending Provider at Discharge: Arpita Siegel MD Consults: None Primary Care Provider: Jordan Cai Diagnoses at Discharge Discharge Diagnosis (1) Cerebrovascular accident: Status: Acute Problem details: -noted aphasia, R facial droop, R-sided carly-paresis. 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 Need to confirm this -GERD; was on omeprazole -Anxiety/depression; was on Paxil Reason for Visit Reason for Visit: stroke Hospital Course Hospital Course: Patient was admitted to the medical surgical floor and placed on telemetry monitoring. She was noted to have clinical findings consistent with stroke but unfortunately due to delay in presentation was not deemed an appropriate candidate for tPA or other intervention. Imaging showed large left MCA subacute infarction, echo shows ejection fraction of 55% with grade 1 diastolic dysfunction. Primary deficits have been expressive aphasia, right facial droop, right-sided hemiparesis. She has been evaluated by therapy including speech therapy with recommendation made for dysphagia pur?ed diet with honey thick liquids, strict aspiration precautions. As patient is right-hand dominant she will require feeding assistance. Permissive hypertension was allowed for about 24 hours and thereafter blood pressure has been controlled with gradual resumption of her oral antihypertensive regimen. Some adjustments have been made to allow for appropriate blood pressure control without increased risk of hypotension. She appears quite depressed due to acute event and will need to be monitored closely, antidepressant has been resumed. She has been referred to neurology as an outpatient. She will need a primary care provider follow-up within 1 week. Discharge Summary: -Patient to follow up with primary care provider within 1 week -Patient to follow-up with Dr. Perkins as soon as next available appointment for post stroke follow-up Physical Exam Const: COMMON NORMALS: no acute distress and alert GENERAL APPEARANCE: cooperative, comfortable and frail appearing ORIENTATION/CONSCIOUSNESS: Yes awake OTHER: -unable to gauge orientation due to aphasia HENMT: COMMON NORMALS: normocephalic, atraumatic, hearing grossly normal bilaterally and moist oral mucous membranes HEAD & SCALP: normocephalic and atraumatic OTHER: -R facial droop Eye: COMMON NORMALS: Equal, round and reactive pupils present, EOMs intact bilaterally and conjunctivae normal CONJUNCTIVA: Yes conjunctivae normal PUPIL: Yes Equal, round and reactive pupils present Neck/C-Spine: COMMON NORMALS: full ROM GENERAL: Yes normal visual inspection and Yes trachea midline Resp: COMMON NORMALS: normal respiratory effort, No retractions, No use of accessory muscles and clear to auscultation bilaterally EFFORT & INSPECTION: Yes able to speak in complete sentences, Yes symmetric chest movement and No tachypneic AUSCULTATION: clear to auscultation bilaterally OTHER: -on RA Cardio: COMMON NORMALS: regular rate, regular rhythm, S1 normal heart sound present, S2 normal heart sound present and No murmurs present (Cardio) RATE: regular rate RHYTHM: regular rhythm HEART SOUNDS: S1 normal heart sound present and S2 normal heart sound present GI: COMMON NORMALS: Normal to inspection, nondistended, normoactive bowel sounds present, Soft to palpation and non-tender PALPATION: Yes Soft to palpation Extremity: COMMON NORMALS: normal to inspection, full ROM and no clubbing, cyanosis or edema; negative for no pedal edema Neuro: SENSORIUM/ORIENTATION: Yes alert SPEECH: expressive aphasia GAIT: Yes Staggering gait present (leans heavily to the R) OTHER: -seems to have some degree of R sided carly-neglect -R sided hemiparesis, worse in upper extremity Psych: COMMON NORMALS: cooperative OTHER: -limited evaluation due to aphasia Skin: COMMON NORMALS: no rashes or lesions noted, no jaundice, no petechiae and no mottling GENERAL SKIN EXAM: no rashes or lesions noted Discharge Data Data Completed and Pending: Completed Studies During Hospitalization Category Date Time Status CT head wo con* [id number] Stat Cat Scan 12/25/19 23:38 Completed XR chest 1V lory ble [id number] Stat Exams 12/25/19 23:37 Completed CV echo complete* [id number] Routine Ultrasound 12/26/19 04:41 Completed Vitals: Last Vital Signs Temp 96.9 F L 12/30/19 11:33 Pulse 91 12/30/19 11:33 Resp 17 12/30/19 11:33 BP 148/83 12/30/19 11:33 Pulse Ox 94 12/30/19 11:33 Discharge Plan Discharge Patient Disposition: Xfer SNF Condition: Stable Prescriptions: New atorvastatin 40 mg Tablet 40 mg PO BEDTIME 30 Days Qty: 30 RF: 0 aspirin 325 mg Tablet 325 mg PO DAILY 30 Days Qty: 30 RF: 0 amlodipine 10 mg Tablet 10 mg PO DAILY 30 Days Qty: 30 RF: 0 lisinopril 10 mg Tablet 10 mg PO DAILY 30 Days Qty: 30 RF: 0 metoprolol tartrate 25 mg Tablet 25 mg PO BID 30 Days Qty: 60 RF: 0 Continued potassium chloride 10 mEq capsule, extended release 10 meq PO DAILY Qty: 30 RF: 0 omeprazole 20 mg capsule,delayed release(DR/EC) 20 mg PO DAILY 30 Days Qty: 30 RF: 0 paroxetine HCl 40 mg tablet 40 mg PO DAILY 30 Days Qty: 30 RF: 0 Discontinued metoprolol succinate 100 mg tablet extended release 24 hr 100 mg PO DAILY RF: 0 amlodipine 5 mg tablet 5 mg PO DAILY RF: 0 lisinopril-hydrochlorothiazide 20-25 mg tablet 1 tab PO DAILY RF: 0 Discharge Orders: Discharge Order (Routine); Ordered 12/30/19 Ordered By: Arpita Siegel Referrals: Terrie Perkins MD [Physician] - 1 month (Post stroke follow up. No tPA given. ) Sue Keane DPM [Referring] - 01/06/20 12:30 pm (Post hospital discharge follow up. You have an appointment on January 05 at 12:30.) Patient Instructions: Ischemic Stroke (DC) Activity Restrictions/Additional Instructions: -Patient is a very high fall risk so should be continued on strict fall precautions. She will need assistance with all out of bed activity -Per speech therapy recommendations she should be continued on a dysphagia pur?ed diet with honey thickened liquids. She will require assistance with all meals due to right-sided weakness Discharge Attestations Time Spent in Discharge Care*: greater than 30 min Specific Discharge Activities: Specific discharge activities: educating patient, discussing with field case manager/social workers/dc planners, documenting/other paperwork and evaluating patient/reviewing data Status at Discharge: Cognitive status at discharge: other (at least moderate expressive aphasia), Behavioral status at discharge: dependent in ADL's, Functional status at discharge: uses cane/walker (2-person assist) Overall status at discharge: patient has a new baseline Quality Metrics Clinical Quality Measures During this hospital stay, did patient experience: None Coding Level of Care Code Acute Resource Manager Forester for Epifanio Monk Diagnoses Cerebrovascular accident I63.9 CVA mechanism: unspecified
[2019-12-30 16:00] VITALS: BP 158/95; PULSE 107; RESP 18; TEMP 36.2; O2SAT 93
[2019-12-30 16:29] VITALS: BP 158/95; PULSE 107; RESP 18; TEMP 36.2; O2SAT 93
== END 2019-12-30 16:00 | disposition skilled nursing facility (03) ==
LOC: ER 12-26 00:14 → MEDSURG 12-26 03:51
PROVIDERS: Emergency Medicine; Admitting Provider Internal Medicine; PCP Internal Medicine; Visit Provider Family Medicine
DX: I63.9 Cerebral infarction, unspecified (principal); E87.6 Hypokalemia; I10 Essential (primary) hypertension; K21.9 Gastro-esophageal reflux disease without esophagitis; F32.9 Major depressive disorder, single episode, unspecified; F41.9 Anxiety disorder, unspecified; R41.81 Age-related cognitive decline
CPT/HCPCS: 12345; 36415; 36416; 36600; 70450; 71045; 80053; 80306; 80307; 81001; 82140; 82550; 82803; 82962; 83036; 83605; 83735; 84439; 84484; 85025; 85610; 87086; 87635; 92507; 92523; 92526; 92610; 93005; 93306; 96360; 96361; 96365; 96366; 96372; 96375; 97110; 97112; 97116; 97162; 97167; 97530; 97535; 99284; 99285; C9113; G0378; J1650; J3480; J7030